=== PATIENT | female | born 1985 | race African-American/Black ===

== ENCOUNTER 2020-12-31 09:15 | Inpatient (IN) ==
[2020-12-31 12:19] LABS: Basophils % 0.2 % (0.0-0.8); Hematocrit 39.6 VOL% (35.7-47.0); Hemoglobin 12.6 GM/DL (12.0-16.0); Immature Granulocytes % 0.8 %; Immature Granulocytes Absolute 0.04 #; Lymphocytes # 1.7 10*3/uL (1.4-4.0); Lymphocytes % 31.4 % (21.3-54.2); Mean Corpuscular HGB Conc 31.8 GM/DL (32-36); Mean Platelet Volume 9.7 FL (9.6-12.0); Monocytes % 7.6 % (1.7-12.7); Platelet Count 248 T/CUMM (130-400); Red Blood Count 4.83 MC/CUMM (3.8-5.5); Red Cell Distribution Width 13.6 % (9.3-17.3); White Blood Count 5.3 T/CUMM (4-12)
[2020-12-31 12:41] LABS: Atypical Lymphocytes Few; Band Neutrophils 2 % (0-10); Lymphocytes 23 % (20-55); Segmented Neutrophils 70 % (50-85); Total Cells Counted 100
[2020-12-31 12:42] LABS: Hypochromasia 1+; Microcytosis 1+
[2020-12-31 12:43] LABS: Platelet Estimate Normal
[2020-12-31 12:51] LABS: Alanine Aminotransferase 94 U/L (13-56); Albumin 2.9 G/DL (3.4-5.0); Alkaline Phosphatase 168 U/L (45-117); Aspartate Amino Transferase 72 U/L (0-37); Bilirubin,Total < 0.39 MG/DL (0.20-1.00); Blood Urea Nitrogen 9 MG/DL (7-18); Calcium 8.2 MG/DL (8.5-10.1); Carbon Dioxide 25 MMOL/L (21-32); Estimated Glom Filtration Rate 128 ML/MIN; Ferritin 311.4 ng/ml (8-252); Glucose 100 MG/DL (74-106); Osmolality,Calculated 266.2 MOS/KG (273-304); Potassium 3.4 MMOL/L (3.5-5.1); Sodium 134 MMOL/L (136-145); Total Protein 7.3 G/DL (6.4-8.2)
[2020-12-31] MEDS ORDERED: ONDANSETRON ODT 4 MG TABLET PO STA (13:02)
[2020-12-31 13:23] LABS: Sedimentation Rate-Westergren 38 MM/HR (0-20)
[2020-12-31] MEDS ORDERED: IBUPROFEN 600 MG TABLET PO STA (13:34)
[2020-12-31] MEDS ORDERED: hydrALAZINE 20 MG/1 ML VIAL IV PRN (14:23)
[2020-12-31] MEDS ORDERED: GLUCAGON 1 MG VIAL IM PRN (14:23)
[2020-12-31] MEDS ORDERED: DEXTROSE 50% 25 GM/50 ML VIAL IV PRN (14:23)
[2020-12-31] MEDS ORDERED: MELATONIN 3 MG TABLET PO PRN (14:29)
[2020-12-31] MEDS ORDERED: REMDESIVIR 200 MG in SODIUM CHLORIDE 0.9% 210 ML IV ONE (16:00)
[2020-12-31] MEDS: DEXAMETHASONE 4 MG/1 ML VIAL IV SCH (17:35)
[2020-12-31] MEDS: FAMOTIDINE 20 MG TABLET PO SCH (21:00)
[2020-12-31] MEDS: ASCORBIC ACID 500 MG TABLET PO SCH (21:00)
[2020-12-31] MEDS: ENOXAPARIN 40 MG/0.4 ML SYRINGE SUBCUT SCH (21:00)
[2021-01-01 06:10] LABS: Basophils % 0.3 % (0.0-0.8); Hematocrit 41.5 VOL% (35.7-47.0); Hemoglobin 13.5 GM/DL (12.0-16.0); Immature Granulocytes % 0.7 %; Immature Granulocytes Absolute 0.02 #; Lymphocytes # 1.1 10*3/uL (1.4-4.0); Lymphocytes % 36.9 % (21.3-54.2); Mean Corpuscular HGB Conc 32.5 GM/DL (32-36); Mean Corpuscular Volume 81.9 FL (87-102); Mean Platelet Volume 9.9 FL (9.6-12.0); Monocytes % 10.1 % (1.7-12.7); Platelet Count 281 T/CUMM (130-400); Red Blood Count 5.07 MC/CUMM (3.8-5.5); Red Cell Distribution Width 13.8 % (9.3-17.3)
[2021-01-01 06:40] LABS: Alanine Aminotransferase 83 U/L (13-56); Albumin 2.6 G/DL (3.4-5.0); Alkaline Phosphatase 174 U/L (45-117); Aspartate Amino Transferase 60 U/L (0-37); Bilirubin,Total < 0.39 MG/DL (0.20-1.00); Blood Urea Nitrogen 12 MG/DL (7-18); Calcium 8.5 MG/DL (8.5-10.1); Carbon Dioxide 24 MMOL/L (21-32); Estimated Glom Filtration Rate 136 ML/MIN; Ferritin 366.9 ng/ml (8-252); Glucose 148 MG/DL (74-106); Osmolality,Calculated 277.7 MOS/KG (273-304); Sodium 138 MMOL/L (136-145); Total Protein 7.3 G/DL (6.4-8.2)
[2021-01-01 07:09] LABS: Hypochromasia 1+; Microcytosis 1+; Platelet Estimate Normal
[2021-01-01] MEDS: CHOLECALCIFEROL 1,000 UNIT TABLET PO SCH (08:09)
[2021-01-01] MEDS: AZITHROMYCIN 250 MG TABLET PO SCH (08:09)
[2021-01-01] MEDS: ASCORBIC ACID 500 MG TABLET PO SCH ×2 (08:09→21:05)
[2021-01-01] MEDS: DEXAMETHASONE 4 MG/1 ML VIAL IV SCH (08:10)
[2021-01-01] MEDS: ZINC GLUCONATE 50 MG TABLET PO SCH (08:10)
[2021-01-01] MEDS: FAMOTIDINE 20 MG TABLET PO SCH ×2 (08:10→21:05)
[2021-01-01] MEDS: CETIRIZINE 10 MG TABLET PO SCH (08:10)
[2021-01-01] MEDS ORDERED: PANTOPRAZOLE 40 MG TABLET PO SCH (09:00)
[2021-01-01] MEDS: REMDESIVIR 100 MG in SODIUM CHLORIDE 0.9% 100 ML IV SCH (10:04)
[2021-01-01] MEDS: ENOXAPARIN 40 MG/0.4 ML SYRINGE SUBCUT SCH (17:09)
[2021-01-01] MEDS: ACETAMINOPHEN 325 MG TABLET PO PRN (22:05)
[2021-01-02 07:09] LABS: Hemoglobin 12.7 GM/DL (12.0-16.0); Immature Granulocytes % 0.7 %; Immature Granulocytes Absolute 0.06 #; Lymphocytes # 2.2 10*3/uL (1.4-4.0); Lymphocytes % 26.4 % (21.3-54.2); Mean Corpuscular HGB Conc 31.8 GM/DL (32-36); Mean Corpuscular Volume 82.8 FL (87-102); Mean Platelet Volume 10.1 FL (9.6-12.0); Monocytes % 10.3 % (1.7-12.7); Neutrophils % 62.6 % (38.7-73.9); Platelet Count 353 T/CUMM (130-400); Red Blood Count 4.83 MC/CUMM (3.8-5.5); Red Cell Distribution Width 13.6 % (9.3-17.3); White Blood Count 8.2 T/CUMM (4-12)
[2021-01-02 07:20] LABS: Calcium 8.4 MG/DL (8.5-10.1); Osmolality,Calculated 280.5 MOS/KG (273-304); Potassium 3.9 MMOL/L (3.5-5.1)
[2021-01-02 07:25] LABS: Ferritin 408.6 ng/ml (8-252)
[2021-01-02 08:39] LABS: Anisocytosis Slight; Band Neutrophils 6 % (0-10); Lymphocytes 26 % (20-55); Platelet Estimate Normal; Segmented Neutrophils 61 % (50-85); Total Cells Counted 100
[2021-01-02] MEDS: ZINC GLUCONATE 50 MG TABLET PO SCH (09:27)
[2021-01-02] MEDS: ASCORBIC ACID 500 MG TABLET PO SCH ×2 (09:28→21:16)
[2021-01-02] MEDS: CETIRIZINE 10 MG TABLET PO SCH (09:28)
[2021-01-02] MEDS: AZITHROMYCIN 250 MG TABLET PO SCH (09:28)
[2021-01-02] MEDS: CHOLECALCIFEROL 1,000 UNIT TABLET PO SCH (09:28)
[2021-01-02] MEDS: DEXAMETHASONE 4 MG/1 ML VIAL IV SCH (09:28)
[2021-01-02] MEDS: FAMOTIDINE 20 MG TABLET PO SCH ×2 (09:28→21:16)
[2021-01-02] MEDS: REMDESIVIR 100 MG in SODIUM CHLORIDE 0.9% 100 ML IV SCH (09:29)
[2021-01-02] MEDS: guaiFENesin/DM ER 600-30 MG TABLET PO SCH ×2 (14:30→21:16)
[2021-01-02] MEDS: ALBUTEROL INHALER 18 GM INH SCH ×3 (14:30→23:12)
[2021-01-02] MEDS: ENOXAPARIN 40 MG/0.4 ML SYRINGE SUBCUT SCH (17:13)
[2021-01-03] MEDS: ALBUTEROL INHALER 18 GM INH SCH (05:25)
[2021-01-03 05:31] LABS: Basophils % 0.2 % (0.0-0.8); Hematocrit 38.5 VOL% (35.7-47.0); Hemoglobin 12.5 GM/DL (12.0-16.0); Immature Granulocytes % 0.9 %; Immature Granulocytes Absolute 0.08 #; Lymphocytes # 2.3 10*3/uL (1.4-4.0); Lymphocytes % 25.4 % (21.3-54.2); Mean Corpuscular HGB Conc 32.5 GM/DL (32-36); Mean Corpuscular Volume 82.4 FL (87-102); Mean Platelet Volume 9.6 FL (9.6-12.0); Monocytes % 8.2 % (1.7-12.7); Neutrophils % 65.3 % (38.7-73.9); Platelet Count 373 T/CUMM (130-400); Red Blood Count 4.67 MC/CUMM (3.8-5.5); Red Cell Distribution Width 13.6 % (9.3-17.3)
[2021-01-03 06:01] LABS: Ferritin 363.7 ng/ml (8-252)
[2021-01-03 06:16] LABS: Calcium 8.7 MG/DL (8.5-10.1)
[2021-01-03 09:06] LABS: Anisocytosis 1+; Platelet Estimate Normal
[2021-01-03] MEDS: ACETAMINOPHEN 325 MG TABLET PO PRN (09:52)
[2021-01-03] MEDS: guaiFENesin/DM ER 600-30 MG TABLET PO SCH (09:53)
[2021-01-03] MEDS: FAMOTIDINE 20 MG TABLET PO SCH (09:53)
[2021-01-03] MEDS: CHOLECALCIFEROL 1,000 UNIT TABLET PO SCH (09:53)
[2021-01-03] MEDS: ZINC GLUCONATE 50 MG TABLET PO SCH (09:53)
[2021-01-03] MEDS: AZITHROMYCIN 250 MG TABLET PO SCH (09:53)
[2021-01-03] MEDS: DEXAMETHASONE 4 MG/1 ML VIAL IV SCH (09:54)
[2021-01-03] MEDS: CETIRIZINE 10 MG TABLET PO SCH (09:54)
[2021-01-03] MEDS: ASCORBIC ACID 500 MG TABLET PO SCH (09:54)
[2021-01-03] MEDS: REMDESIVIR 100 MG in SODIUM CHLORIDE 0.9% 100 ML IV SCH (09:56)
[2021-01-03 11:40] VITALS: BP 106/70
== END 2021-01-03 14:20 | disposition home or self-care (01) | DRG 177 ==
LOC: SUATTDRO → N.ED 09:15 → N.EDINP 14:26 → SUATTDRO 14:26 → N.EDINP 19:16
PROVIDERS: ADMIT Internal Medicine; ATTEND Internal Medicine

== ENCOUNTER 2021-11-19 07:19 | Inpatient (IN) ==
[2021-11-19] MEDS ORDERED: OXYTOCIN/LR 20 UNIT/1,000 ML BAG IV ONE ×2 (07:29→11:19)
[2021-11-19] MEDS ORDERED: CARBOPROST TROMETHAMINE 250 MCG/ML AMP IM PRN (07:29)
[2021-11-19] MEDS ORDERED: CITRIC ACID/SODIUM CITRATE 30 ML UDCUP PO ONE (07:29)
[2021-11-19] MEDS ORDERED: METHYLERGONOVINE 0.2 MG/1 ML AMP IM PRN (07:29)
[2021-11-19] MEDS ORDERED: ceFAZolin 2,000 MG/50 ML DUPLEX IV ONE (07:29)
[2021-11-19] MEDS ORDERED: FAMOTIDINE 20 MG/2 ML VIAL IV ONE (07:29)
[2021-11-19] MEDS ORDERED: miSOPROStoL 200 MCG TABLET RECTAL PRN (07:29)
[2021-11-19] MEDS ORDERED: TRANEXAMIC ACID 1,000 MG in SODIUM CHLORIDE 0.9% 100 ML IV PRN (07:29)
[2021-11-19] MEDS ORDERED: ONDANSETRON 4 MG/2 ML VIAL IV PRN ×2 (07:29→11:19)
[2021-11-19] MEDS: LACTATED RINGERS 1,000 ML IV SCH ×2 (07:48→09:11)
[2021-11-19 07:50] LABS: Basophils % 0.5 % (0.0-0.8); Eosinophils % 0.4 % (0.00-10.9); Hematocrit 35.3 VOL% (35.7-47.0); Hemoglobin 11.4 GM/DL (12.0-16.0); Immature Granulocytes % 0.5 %; Immature Granulocytes Absolute 0.04 #; Lymphocytes # 1.8 10*3/uL (1.4-4.0); Lymphocytes % 22.9 % (21.3-54.2); Mean Corpuscular HGB Conc 32.3 GM/DL (32-36); Mean Corpuscular Volume 84.2 FL (87-102); Monocytes # 0.9 10*3/uL (0.11-0.8); Monocytes % 11.3 % (1.7-12.7); Neutrophils % 64.4 % (38.7-73.9); Platelet Count 238 T/CUMM (130-400); Red Blood Count 4.19 MC/CUMM (3.8-5.5); Red Cell Distribution Width 13.5 % (9.3-17.3); White Blood Count 7.8 T/CUMM (4-12)
[2021-11-19 08:14] LABS: Albumin 2.5 G/DL (3.4-5.0); Bilirubin,Total 0.4 MG/DL (0.20-1.00); Calcium 9.1 MG/DL (8.5-10.1); Osmolality,Calculated 271.7 MOS/KG (273-304); Potassium 3.9 MMOL/L (3.5-5.1)
[2021-11-19 08:22] LABS: Rubella Antibody IgG Result Non-Reactive (NonReactive)
[2021-11-19] MEDS ORDERED: BUPIVACAINE SPINAL 0.75% 2 ML AMP SPINAL ONE (08:57)
[2021-11-19] MEDS ORDERED: KETOROLAC 30 MG/1 ML VIAL ONE (08:57)
[2021-11-19] MEDS ORDERED: buprenorphine HCL 0.3 MG/ML VIAL ONE (08:57)
[2021-11-19] MEDS ORDERED: PHENYLEPHRINE 1 MG/10 ML SYRINGE IV ONE (08:57)
[2021-11-19] MEDS ORDERED: OXYTOCIN/LR 30 UNIT/1,000 ML BAG IV ONE (08:57)
[2021-11-19] MEDS ORDERED: ACETAMINOPHEN INJ 1,000 MG/100 ML VIAL IV ONE (08:57)
[2021-11-19] MEDS ORDERED: ONDANSETRON 4 MG/2 ML VIAL ONE (08:57)
[2021-11-19] MEDS ORDERED: OXYTOCIN 10 UNIT/ML VIAL IM ONE (08:57)
[2021-11-19] MEDS ORDERED: SODIUM CHLORIDE 0.9% 0 ML IV ONE (09:11)
[2021-11-19 10:13] LABS: Cord Arterial Blood HCO3 22.3 MMOL/L
[2021-11-19] MEDS ORDERED: MIDAZOLAM 2 MG/2 ML VIAL ONE (10:14)
[2021-11-19] MEDS ORDERED: fentaNYL 100 MCG/2 ML VIAL ONE (10:14)
[2021-11-19 10:16] LABS: Cord Venous Blood PCO2 46.9 MMHG; Cord Venous Blood PO2 28.4
[2021-11-19 10:19] LABS: Mucus,Urine Occasional /LPF (Occasional); RBC,Urine 1 /HPF (0-4); Squamous Epithelial Cell,Urine Occasional /HPF (0-10)
[2021-11-19 10:20] LABS: Bilirubin,Urine Negative (Negative); Blood, Urine Negative (Negative); Glucose,Urine (UA) Negative (Negative); Ketones,Urine 40 mg/dL (Negative); Nitrite,Urine Negative (Negative); Protein,Urine Trace mg/dL (Negative); Urine Appearance Clear (Clear); Urine Color Yellow (Yellow); Urine Urobilinogen 0.2 eU/dL (<2.0)
[2021-11-19] MEDS ORDERED: MAGNESIUM HYDROXIDE SUSP 30 ML UDCUP PO PRN (11:19)
[2021-11-19] MEDS ORDERED: SIMETHICONE CHEW 80 MG TABLET PO PRN (11:19)
[2021-11-19] MEDS ORDERED: ACETAMINOPHEN 325 MG TABLET PO PRN (11:19)
[2021-11-19] MEDS ORDERED: RHO(D) IMMUNE GLOBULIN 300 MCG SYRINGE IM ONE (11:19)
[2021-11-19] MEDS ORDERED: IBUPROFEN 800 MG TABLET PO PRN (11:19)
[2021-11-19] MEDS ORDERED: LACTATED RINGERS 1,000 ML IV SCH (11:30)
[2021-11-19 19:44] LABS: Basophils % 0.4 % (0.0-0.8); Eosinophils % 0.1 % (0.00-10.9); Hematocrit 27.6 VOL% (35.7-47.0); Hemoglobin 8.8 GM/DL (12.0-16.0); Immature Granulocytes % 0.4 %; Immature Granulocytes Absolute 0.04 #; Lymphocytes # 1.7 10*3/uL (1.4-4.0); Lymphocytes % 18.4 % (21.3-54.2); Mean Corpuscular HGB Conc 31.9 GM/DL (32-36); Mean Corpuscular Volume 85.4 FL (87-102); Mean Platelet Volume 10.6 FL (9.6-12.0); Monocytes # 0.9 10*3/uL (0.11-0.8); Monocytes % 9.9 % (1.7-12.7); Neutrophils % 70.8 % (38.7-73.9); Platelet Count 199 T/CUMM (130-400); Red Blood Count 3.23 MC/CUMM (3.8-5.5); Red Cell Distribution Width 13.6 % (9.3-17.3); White Blood Count 9.4 T/CUMM (4-12)
[2021-11-19] MEDS: DOCUSATE SODIUM 100 MG CAPSULE PO SCH (21:24)
[2021-11-19] MEDS: ACETAMINOPHEN 500 MG TABLET PO SCH (21:24)
[2021-11-19] MEDS: KETOROLAC 30 MG/1 ML VIAL IV SCH (21:24)
[2021-11-20] MEDS: KETOROLAC 30 MG/1 ML VIAL IV SCH (03:58)
[2021-11-20 05:42] LABS: Basophils % 0.4 % (0.0-0.8); Eosinophils % 0.4 % (0.00-10.9); Hematocrit 27.7 VOL% (35.7-47.0); Hemoglobin 8.8 GM/DL (12.0-16.0); Immature Granulocytes % 0.4 %; Immature Granulocytes Absolute 0.04 #; Lymphocytes # 1.9 10*3/uL (1.4-4.0); Lymphocytes % 21.1 % (21.3-54.2); Mean Corpuscular HGB Conc 31.8 GM/DL (32-36); Mean Corpuscular Volume 86.3 FL (87-102); Mean Platelet Volume 11.7 FL (9.6-12.0); Monocytes # 1.1 10*3/uL (0.11-0.8); Monocytes % 11.8 % (1.7-12.7); Neutrophils % 65.9 % (38.7-73.9); Platelet Count 200 T/CUMM (130-400); Red Blood Count 3.21 MC/CUMM (3.8-5.5); Red Cell Distribution Width 13.4 % (9.3-17.3); White Blood Count 8.9 T/CUMM (4-12)
[2021-11-20] MEDS: ACETAMINOPHEN 500 MG TABLET PO SCH (06:06)
[2021-11-20] MEDS: IBUPROFEN 800 MG TABLET PO PRN ×3 (06:19→22:57)
[2021-11-20] MEDS: FERROUS SULFATE 325 MG TABLET PO SCH ×2 (09:50→20:41)
[2021-11-20] MEDS: DOCUSATE SODIUM 100 MG CAPSULE PO SCH ×2 (09:50→20:42)
[2021-11-20] MEDS: MULTIVITAMIN (PRENATAL) TABLET PO SCH (09:50)
[2021-11-20] MEDS ORDERED: BISACODYL 10 MG SUPP RECTAL PRN (20:36)
[2021-11-21] MEDS: FERROUS SULFATE 325 MG TABLET PO SCH (08:02)
[2021-11-21] MEDS: DOCUSATE SODIUM 100 MG CAPSULE PO SCH (08:02)
[2021-11-21] MEDS: MULTIVITAMIN (PRENATAL) TABLET PO SCH (08:03)
[2021-11-21 10:51] VITALS: BP 131/80
[2021-11-21] MEDS ORDERED: DIPH/TET/ACEL PERT BOOSTER VACCINE 0.5 ML VIAL IM ONE (11:48)
[2021-11-21] MEDS: IBUPROFEN 800 MG TABLET PO PRN (12:14)
== END 2021-11-21 14:50 | disposition home or self-care (01) | DRG 785 ==
LOC: N.LD 07:19 → N.OB 13:36
PROVIDERS: ADMIT Obstetrics & Gynecology; ATTEND Obstetrics & Gynecology